=== PATIENT | female | born 1940 | race Hispanic/Latino ===

== ENCOUNTER 2017-09-25 12:58 | Emergency (ER) | payer OTHER ==
[2017-09-25] MEDS ORDERED: ONDANSETRON HCL MDV 20ML 2 MG/ML VIAL ONE (13:28)
[2017-09-25 13:32] LABS: BASOPHILS % (AUTO) 0.3 % (0.0-5.0); HEMATOCRIT 43.3 % (36-48); LYMPHOCYTES % (AUTO) 34.3 % (21.0-51.0); MEAN CORPUSCULAR HEMOGLOBIN 33.1 pg (27.0-33.0); MEAN CORPUSCULAR HGB CONC 34.7 g/dL (32.0-36.0); MEAN CORPUSCULAR VOLUME 95.3 fL (79-99); MONOCYTES % (AUTO) 10.7 % (3.0-13.0); NEUTROPHILS % (AUTO) 49.7 % (40.0-77.0); NUCLEATED RED BLOOD CELLS 0.1 % (0.0-0.19); PLATELET COUNT (AUTO) 156 K/uL (130-400); RED BLOOD CELL COUNT(AUTO) 4.54 MIL/uL (4.00-5.50); RED CELL DISTRIBUTION WIDTH 13.8 % (11.0-15.5); WHITE BLOOD COUNT (AUTO) 7.1 K/uL (4.8-10.8)
[2017-09-25] MEDS ORDERED: ASPIRIN 325 MG TABLET ONE (13:32)
[2017-09-25] MEDS ORDERED: MAGNESIUM HYDROXIDE 30 ML/UDCUP ONE (13:33)
[2017-09-25] MEDS ORDERED: LIDOCAINE HCL 2% VISCOUS 15 ML UDCUP ONE (13:33)
[2017-09-25 13:49] LABS: INR 1.07 (0.85-1.15); PARTIAL THROMBOPLASTIN TIME 25.9 SEC (26.3-35.5); PROTHROMBIN TIME 11.2 SEC (9.6-11.6)
[2017-09-25 13:51] LABS: CREATININE 0.6 mg/dL (0.5-1.5); POTASSIUM 3.3 mmol/L (3.5-5.1)
[2017-09-25 13:55] LABS: BILIRUBIN,TOTAL 0.9 mg/dL (0.2-1.0); TOTAL PROTEIN, SERUM 7.4 g/dL (6.0-8.3)
[2017-09-25 13:58] LABS: B-TYPE NATRIURETIC PEPTIDE 130 pg/mL (0-100)
== END 2017-09-25 17:26 | disposition home or self-care (01) ==
LOC: EDH 12:58
DX: R07.89 Other chest pain (principal); R10.13 Epigastric pain; R11.0 Nausea; R63.0 Anorexia; I10 Essential (primary) hypertension
CPT/HCPCS: 36415; 71045; 74176; 80053; 82550; 83880; 84484; 84702; 85025; 85610; 85730; 93005; 94761; 96374

== ENCOUNTER → 2018-11-26 | Outpatient (CLI) | payer OTHER ==
[2018-11-26 12:01] LABS: CREATININE 0.6 mg/dL (0.5-1.5)
== END | disposition home or self-care (01) ==
LOC: RAH 11:17
PROVIDERS: ATTEND Internal Medicine Gastroenterology
DX: K74.60 Unspecified cirrhosis of liver (principal); R97.8 Other abnormal tumor markers; R93.2 Abnormal findings on diagnostic imaging of liver and biliary tract
CPT/HCPCS: 36415; 82565; 84520

== ENCOUNTER → 2018-12-04 | Outpatient (CLI) | payer OTHER ==
[~2018-12-04] MED LIST: GADODIAMIDE 10 MMOL/20 ML VIAL IV ONE
== END | disposition home or self-care (01) ==
LOC: RAH 12:33
PROVIDERS: ATTEND Internal Medicine Gastroenterology
DX: K76.89 Other specified diseases of liver (principal); K74.60 Unspecified cirrhosis of liver
CPT/HCPCS: 74183; A9579

== ENCOUNTER 2021-06-09 08:47 | Day surgery (SDC) | payer OTHER ==
[2021-06-09 10:55] LABS: INR 1.27 (0.85-1.15); PROTHROMBIN TIME 13.5 SEC (9.6-11.6)
[2021-06-09 10:57] LABS: PARTIAL THROMBOPLASTIN TIME 28.9 SEC (26.3-35.5)
[2021-06-09] MEDS ORDERED: LIDOCAINE HCL MPF 1% 5ML VIAL ONE ×2 (12:42)
[2021-06-09] MEDS ORDERED: MIDAZOLAM HCL 1 MG/ML 2ML VIAL ONE (12:42)
[2021-06-09] MEDS ORDERED: FENTANYL CITRATE PF 50 MCG/1 ML 2ML VIAL ONE (12:42)
[2021-06-09 14:50] VITALS: BP 157/51
[2021-06-09 15:05] VITALS: BP 147/50
[2021-06-09 15:20] VITALS: BP 143/51
[2021-06-09 16:20] VITALS: BP 138/52
[2021-06-09 17:00] VITALS: BP 142/54
== END 2021-06-09 17:10 | disposition home or self-care (01) ==
LOC: DAH 08:47
PROVIDERS: ATTEND Internal Medicine
DX: K76.9 Liver disease, unspecified (principal); R16.0 Hepatomegaly, not elsewhere classified; K74.69 Other cirrhosis of liver; I10 Essential (primary) hypertension; E66.01 Morbid (severe) obesity due to excess calories; M81.0 Age-related osteoporosis without current pathological fracture; D64.9 Anemia, unspecified; Z79.01 Long term (current) use of anticoagulants; Z79.899 Other long term (current) drug therapy
CPT/HCPCS: 36415; 47000; 76942; 85610; 85730; 88307; 88313; 88341; 88342; A4215 ×2; A4216; A4221; A4222; A4223 ×3; A4335; A4606; A4663; J2250; J3010; J3490 ×2